=== PATIENT | female | born 1990 | race Asian ===

== ENCOUNTER → 2024-12-18 08:49 | Outpatient (CLI) | payer OTHER, SELFPAY ==
[2024-12-18 09:47] LABS: Add Manual Diff / Slide Review NO; Basophils Absolute Auto 0 /uL (0-100); Basophils Percent Auto 0.8 % (0-2); Eosinophils Absolute Auto 100 /uL (0-450); Eosinophils Percent Auto 1.2 % (2-4); Hematocrit 42.4 % (36-46); Hemoglobin 14.8 g/dL (12.0-16.0); Lymphocytes Absolute Auto 2200 /uL (1100-4500); Lymphocytes Percent Auto 43.3 % (25-40); Mean Corpuscular HGB Conc 34.8 % (30-36); Mean Corpuscular Hemoglobin 31.6 PG (26-34); Mean Corpuscular Volume 90.8 fL (80-100); Monocytes Absolute Auto 300 /uL (0-900); Monocytes Percent Auto 6.7 % (3-14); Neutrophils Absolute Auto 2500 /uL (1500-7000); Platelet Count 294 X10^3/uL (150-400); Red Blood Cell Count 4.68 X10^6/uL (4.0-5.2); Red Cell Distribution Width 13.1 % (11.6-14.8); White Blood Cell Count 5.1 X10^3/uL (4.5-11.0)
[2024-12-18 10:00] LABS: Hemoglobin A1C% w Est Avg Glu 4.6 % (4.0-6.0)
[2024-12-18 10:23] LABS: Alanine Aminotransferase 23 IU/L (<35); Albumin 4.9 g/dL (3.5-5.0); Albumin Globulin Ratio 1.8 (1.0-2.8); Alkaline Phosphatase 67 U/L (38-126); Aspartate Aminotransferase 25 IU/L (14-36); BUN Creatinine Ratio 18.7 (6-22); Blood Urea Nitrogen 14 mg/dL (7-17); Calcium 9.6 mg/dL (8.4-10.2); Carbon Dioxide 24 mmol/L (22-32); Chloride 105 mmol/L (98-107); Cholesterol 271 mg/dL (140-199); Estimated Glomerular Filt Rate > 60 mL/min (>60); Globulin 2.8 g/dL (1.7-4.1); Glucose 86 mg/dL (70-100); HDL Cholesterol 70 mg/dL (40-60); HEMOLYSIS < 15 (0-50); LDL Cholesterol Calculated 180 mg/dL (<100); Potassium 4.6 mmol/L (3.4-5.1); Sodium 139 mmol/L (137-145); Total Protein 7.7 g/dL (6.3-8.2); Triglycerides 106 mg/dL (35-150)
[2024-12-18 10:49] LABS: TSH w/ Reflex to FT4 1.38 uIU/mL (0.47-4.68)
== END ==
PROVIDERS: PCP Student in an Organized Health Care Education/Training Program; Referring Provider Student in an Organized Health Care Education/Training Program; Visit Provider Student in an Organized Health Care Education/Training Program
DX: E03.9 Hypothyroidism, unspecified (principal); Z31.9 Encounter for procreative management, unspecified
CPT/HCPCS: 36415; 80053; 80061; 83036; 84443; 85025

== ENCOUNTER → 2024-12-27 07:00 | Outpatient (CLI) | payer OTHER, SELFPAY ==
--- NOTE | 2024-12-27 07:01 | DI.US.S_ITS ---
PROCEDURE: US PELVIC COMPLETE INDICATIONS: INFERTILITY. LMP 12/13/24. TECHNIQUE: Real-time scanning was performed of the pelvic organs, with image documentation. Additional endovaginal scanning was necessary due to incomplete visualization of the adnexal and endometrial structures by transabdominal scanning. COMPARISON: None. FINDINGS: Uterus: Uterus is anteverted and normal in size at 8.7 x 5.3 x 4.9 cm. The myometrium is homogeneous. The endometrium measures 10 mm combined thickness. Ovaries: The right ovary measures 4.1 x 4.3 x 1.6 cm, with a calculated ovarian volume of 15 cc. The left ovary measures 2.7 x 1.4 x 1.3 cm, with a calculated ovarian volume of 3 cc. The ovaries have a normal sonographic appearance. Less than 12 follicles can be seen in each ovary. No adnexal masses are seen. Other: No pathologic free abdominal or pelvic fluid. IMPRESSION: Normal pelvic ultrasound. Less than 12 follicles per ovary. We strive to produce accurate, complete, and clear reports of imaging services. To assist us in improving patient care, this report was composed using standard report templates and voice recognition software. Therefore, it may contain abnormal punctuation, insertions and/or omissions. Occasional wrong-word or sound-alike substitutions may occur. Though we review the report and make efforts to correct it, we do recommend that the report be read carefully in proper context to recognize any text inaccuracies. Dictated by: Terry Chavis M.D. on 12/27/2024 at 11:35 Approved by: Terry Chavis M.D. on 12/27/2024 at 11:38
== END ==
PROVIDERS: PCP Student in an Organized Health Care Education/Training Program; Referring Provider Student in an Organized Health Care Education/Training Program; Visit Provider Student in an Organized Health Care Education/Training Program
DX: Z31.9 Encounter for procreative management, unspecified (principal)
CPT/HCPCS: 76830; 76856

== ENCOUNTER 2025-01-21 10:47 | Day surgery (SDC) | payer OTHER, SELFPAY ==
[2025-01-15 10:25] VITALS: BMI 29.0
[2025-01-21] VITALS (9 sets, daily range): BP systolic 122–144; BP diastolic 73–102; PULSE 72–87; RESP 12–19; TEMP 36.2–36.4; O2SAT 93–100; BMI 29.2
[2025-01-21] MEDS: ACETAMINOPHEN 325 MG TABLET 975 MG PO (11:14)
[2025-01-21] MEDS: LACTATED RINGERS 1,000 ML 21 ML IV (11:14)
[2025-01-21] MEDS: SCOPOLAMINE 1 PATCH TOP (11:14)
[2025-01-21] MEDS: FAMOTIDINE 20 MG/2 ML VIAL IV (11:14)
--- NOTE | 2025-01-21 11:19 | PM.PREOP ---
Pre-operative Note Interval Note History & Physical reviewed/Exam performed by Physician: Yes Changes to H&P: No
--- NOTE | 2025-01-21 11:50 | SUR.OPER ---
Lithotomy on padded OR bed. Divernon Pad Positioner under torso. Head on pillow, arms padded and tucked at sides. Legs secured in padded yellow fins stirrups.
[2025-01-21] MEDS: BUPIVACAINE 0.5% W/ EPI (PF) 30 ML VIAL INJ (12:02)
[2025-01-21] MEDS: METHYLENE BLUE 50 MG/10 ML VIAL IV (12:07)
--- NOTE | 2025-01-21 12:25 | P.OP_ITS ---
Operative Date/Time/Diagnoses Date of procedure: 01/21/25 Time of procedure: 12:25 Pre-op diagnosis: Pelvic and abdominal pain with history of endometriosis/endometrioma Post-op diagnosis: same Procedure & Clinicians Procedure: Diagnostic laparoscopy Same procedure as scheduled: Yes Indications: Pelvic and abdominal pain with history of surgery for endometriosis/endometrioma Surgeon: Kenzie Osborne Post Acute Care Nurse Practitioner: Silvia Orona Click Yes if Unassisted: No Anesthesia Type: General and Local Operative Notes Findings: Normal intra-abdominal findings. No significant adhesions. No obvious endometriosis. Uterus, tubes, ovaries appear normal. Dye placed through the uterine manipulator spilled out of both fallopian tubes. Closure Type: primary Specimen(s): none sent Applied: catheter (Ivory removed at the end of the case) Estimated Blood Loss (mL): 2 Blood products transfused: none Procedure in detail: Patient was brought to the operating room where she underwent general anesthesia. She was placed in low yellowfin stirrups and prepped and draped in usual sterile fashion. Pulsatile stockings were in place and functional. Warming was with blankets. A single-tooth tenaculum was placed on the anterior lip of the cervix and the cervix dilated to #6 Hegar dilator. The Zumi uterine manipulator was placed and balloon inflated with 3 mL of air. The area of the incisions were injected with half percent Marcaine with epinephrine. An incision was made in the umbilicus with a scalpel and the Verres needle placed in the abdomen. Confirmation of correct placement of the needle was performed by withdrawing on the syringe and then allowing fluid to fall freely through the needle. The abdomen was insufflated to 2.5 L of CO2. A 5 mm trocar was placed under direct visualization. 2 other 5 mm trochars were placed in the right and left quadrants, using prior incision sites, under direct visualization after incising the skin. There did not appear to be any damage with placement of the trocars. The entire abdomen was examined. Methylene blue diluted with saline was injected through the uterine manipulator and was seen to flow through both fallopian tubes. The CO2 was allowed to escape from the abdomen. The trochars were removed. Skin was closed with 4-0 monocryl. The patient went to recovery room in good condition. Complications: none Post-operative Condition: stable Disposition: same day surgery Plan for aftercare: Home when awake and stable.
[2025-01-21] MEDS: OXYCODONE IR 5 MG TABLET PO (12:31)
[2025-01-21] MEDS: fentaNYL 100 MCG/2 ML INJ IV (12:36)
== END 2025-01-21 13:26 | disposition home or self-care (01) ==
PROVIDERS: PCP Student in an Organized Health Care Education/Training Program; Referring Provider Specialist; Visit Provider Specialist
PROC: (CPT 49320; principal; 2025-01-21 12:15)
DX: Z87.42 Personal history of other diseases of the female genital tract (principal)
CPT/HCPCS: 49320; 81025; J1100; J1171; J1885; J2250; J2405; J2704; J3010; J3490; Q9968